=== PATIENT | female | born 1980 | race Caucasian/White ===

== ENCOUNTER 2017-01-01 16:32 | Inpatient (IN) | payer OTHER ==
[2017-01-01] MEDS ORDERED: Albuterol-Ipratrop 3 mg / 0.5 (3 ml) UD INH STA (16:38)
[2017-01-01 16:58] LABS: BASO # 0.1 K/uL (0.0-0.2); BASO % 0.9 % (0.0-2.0); EOS # 0.1 K/uL (0.0-0.7); EOS % 0.9 % (0.0-4.0); HEMATOCRIT 41.7 % (34.0-47.0); LYMPH # 3.7 K/uL (1.0-4.3); LYMPH % 31.3 % (20.0-40.0); MEAN CELL VOLUME 88.4 fl (81.0-99.0); MEAN CORPUSCULAR HEMOGLOBIN 28.6 pg (27.0-31.0); MEAN CORPUSCULAR HGB CONC 32.3 g/dL (33.0-37.0); MEAN PLATELET VOLUME 8.8 fl (7.2-11.7); MONO # 0.8 K/uL (0.0-0.8); MONO % 7.2 % (0.0-10.0); NEUT # 7.1 K/uL (1.8-7.0); NEUT % 59.7 % (50.0-75.0); RED CELL DISTRIBUTION WIDTH 13.3 % (11.5-14.5); WHITE BLOOD COUNT 11.8 K/uL (4.8-10.8)
[2017-01-01] MEDS ORDERED: Iohexol 300 100 ML IJ ONE (17:01)
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
[2017-01-01] MEDS ORDERED: Sodium Chloride 0.9% 50 ML IV ONE (17:02)
[2017-01-01 17:12] LABS: PARTIAL THROMBOPLASTIN TIME 27.5 Seconds (25.6-37.1)
[2017-01-01 17:19] LABS: ALB/GLOB RATIO 1.4 (1.0-2.1); ALCOHOL SERUM < 10 mg/dl (0-10); ALKALINE PHOSPHATASE 82 U/L (38-126); ALT/SGPT 47 U/L (9-52); AST/SGOT 46 U/L (14-36); BILIRUBIN,TOTAL 0.5 mg/dl (0.2-1.3); BLOOD UREA NITROGEN 6 mg/dl (7-17); CARBON DIOXIDE 13 mmol/L (22-30); CHLORIDE 111 mmol/L (98-107); GFR AFRICAN-AMERICAN > 60; GLUCOSE,RANDOM 255 mg/dL (65-105); LIPASE 86 U/L (23-300); POTASSIUM 3.7 MMOL/L (3.6-5.0); SODIUM 146 mmol/l (132-148); TOTAL PROTEIN 8.1 G/DL (6.3-8.2)
[2017-01-01] MEDS ORDERED: Etomidate 20 mg/10ml Inj IV ONE (17:19)
[2017-01-01] MEDS ORDERED: Succinylcholine 200 mg/10 ml Inj IV ONE (17:19)
[2017-01-01] MEDS ORDERED: Propofol 10 mg/ml Inj (20 ML) IV ONE (17:19)
[2017-01-01] MEDS ORDERED: Propofol 10 mg/ml 1,000 MG/100 ML VIAL IV SCH ×2 (17:30→21:39)
[2017-01-01 17:36] LABS: VENOUS BLOOD GAS BASE EXCESS -13.2 mmol/L (0.0-2.0); VENOUS BLOOD GAS PCO2 60 mmHg (40-60); VENOUS BLOOD PH 7.07 (7.32-7.43)
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
[2017-01-01] MEDS ORDERED: Piperacillin/Tazobact 3.375 GM in Sodium Chloride 0.9% 100 ML IVPB STA (17:42)
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
[2017-01-01 17:55] LABS: ABG ALLEN TEST YES; ABG MECHANICAL RATE 14; ARTERIAL BLOOD GAS HCO3 16.2 mmol/L (21-28); ARTERIAL BLOOD GAS MODE PRVC AC; ARTERIAL BLOOD GAS O2 CAPACITY 16.1 mL/dL (16-24); ARTERIAL BLOOD GAS PH 7.21 (7.35-7.45); ARTERIAL BLOOD GAS PO2 250 mm/Hg (80-100); ARTERIAL BLOOD HGB O2 SAT 97.1 % (95.0-98.0); ATERIAL BLOOD GAS PEEP 5; CARBOXYHEMOGLOBIN 0.4 % (0.5-1.5); HHB 0.4 % (0.0-5.0); METHEMOGLOBIN 2.1 % (0.0-3.0)
[2017-01-01] MEDS ORDERED: Piperacillin/Tazobact 3.375 gm Inj IVPB ONE (17:59)
[2017-01-01] MEDS ORDERED: Vancomycin 1 g Inj ONE (17:59)
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
[2017-01-01] MEDS ORDERED: Propofol 10 mg/ml 2,000 MG/200 ML VIAL ONE (18:44)
[2017-01-01] MEDS ORDERED: DOPamine 400mg/250ml D5W 400 MG/250 ML BAG IV ONE (18:55)
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
[2017-01-01] MEDS ORDERED: Dextrose 5%/0.9% NS 1,000 ML IV ONE (19:40)
[2017-01-01 20:13] VITALS: BMI 22.8
[2017-01-01 21:43] LABS: VENOUS BLOOD GAS BASE EXCESS -10.8 mmol/L (0.0-2.0); VENOUS BLOOD GAS PCO2 45 mmHg (40-60); VENOUS BLOOD PH 7.19 (7.32-7.43)
[2017-01-01 22:00] LABS: ABG ALLEN TEST YES; ARTERIAL BLOOD GAS HCO3 18.2 mmol/L (21-28); ARTERIAL BLOOD GAS O2 CAPACITY 15.9 mL/dL (16-24); ARTERIAL BLOOD GAS O2 CONTENT 15.7 ML/dL (15-23); ARTERIAL BLOOD GAS PH 7.31 (7.35-7.45); ARTERIAL BLOOD GAS PO2 382 mm/Hg (80-100); ARTERIAL BLOOD HGB O2 SAT 97.4 % (95.0-98.0); CARBOXYHEMOGLOBIN 0 % (0.5-1.5); METHEMOGLOBIN 1.5 % (0.0-3.0)
[2017-01-01] MEDS: Piperacillin/Tazobact 3.375 GM in Sodium Chloride 0.9% 100 ML IVPB SCH (22:08)
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
[2017-01-02] MEDS ORDERED: Propofol 10 mg/ml 1,000 MG/100 ML VIAL IV SCH (04:37)
[2017-01-02] MEDS: Piperacillin/Tazobact 3.375 GM in Sodium Chloride 0.9% 100 ML IVPB SCH ×4 (04:39→21:16)
[2017-01-02 05:39] LABS: ABG ALLEN TEST YES; ABG MECHANICAL RATE 14; ARTERIAL BLOOD GAS MODE A/C; ARTERIAL BLOOD GAS O2 CAPACITY 16.1 mL/dL (16-24); ARTERIAL BLOOD GAS PO2 201 mm/Hg (80-100); ARTERIAL BLOOD HGB O2 SAT 97.3 % (95.0-98.0); ATERIAL BLOOD GAS PEEP 5; CARBOXYHEMOGLOBIN 0.5 % (0.5-1.5); HHB 0.9 % (0.0-5.0); METHEMOGLOBIN 1.2 % (0.0-3.0)
[2017-01-02 05:46] LABS: ALKALINE PHOSPHATASE 50 U/L (38-126); ALT/SGPT 43 U/L (9-52); AST/SGOT 66 U/L (14-36); BILIRUBIN,TOTAL 0.7 mg/dl (0.2-1.3); BLOOD UREA NITROGEN 4 mg/dl (7-17); CALCIUM 7.5 mg/dL (8.4-10.2); CARBON DIOXIDE 18 mmol/L (22-30); CHLORIDE 117 mmol/L (98-107); GFR AFRICAN-AMERICAN > 60; GLUCOSE,RANDOM 100 mg/dL (65-105); PHOSPHOROUS 2.5 mg/dl (2.5-4.5); POTASSIUM 3.5 MMOL/L (3.6-5.0); SODIUM 143 mmol/l (132-148); TOTAL PROTEIN 5.5 G/DL (6.3-8.2)
[2017-01-02] MEDS ORDERED: Pneumococcal 23-Valent Vaccine IM ONE (06:00)
[2017-01-02 06:09] LABS: ALB/GLOB RATIO 1.2 (1.0-2.1)
[2017-01-02 06:15] LABS: THYROID STIMULATING HORMONE 1.91 mIU/ML (0.46-4.68)
[2017-01-02] MEDS: Albuterol 0.083% Inhal Sol (2.5 mg/3 mL) UD INH SCH ×4 (07:45→19:12)
[2017-01-02 08:04] LABS: RBC URINE 5 /hpf (0-3); URINE BILIRUBIN NEGATIVE (NEGATIVE); URINE BLOOD MODERATE (NEGATIVE); URINE COLOR YELLOW (YELLOW); URINE GLUCOSE (UA) NEG (Normal); URINE KETONE NEGATIVE (NEGATIVE); URINE LEUKOCYTE ESTERASE NEG Leu/uL (Negative); URINE PROTEIN NEGATIVE (NEGATIVE); URINE UROBILINOGEN 0.2-1.0 mg/dL (0.2-1.0); WBC URINE 3 /hpf (0-5)
[2017-01-02 09:19] LABS: BASO % 0.1 % (0.0-2.0); HEMATOCRIT 34.7 % (34.0-47.0); LYMPH # 0.5 K/uL (1.0-4.3); LYMPH % 3.2 % (20.0-40.0); MEAN CELL VOLUME 87.3 fl (81.0-99.0); MEAN CORPUSCULAR HEMOGLOBIN 28.6 pg (27.0-31.0); MEAN CORPUSCULAR HGB CONC 32.8 g/dL (33.0-37.0); MEAN PLATELET VOLUME 8.6 fl (7.2-11.7); MONO # 0.7 K/uL (0.0-0.8); MONO % 4.3 % (0.0-10.0); NEUT # 15.4 K/uL (1.8-7.0); NEUT % 92.4 % (50.0-75.0); NRBC % 0.1 % (0.0-0.0); RED CELL DISTRIBUTION WIDTH 13.6 % (11.5-14.5); WHITE BLOOD COUNT 16.7 K/uL (4.8-10.8)
[2017-01-02 09:36] LABS: PARTIAL THROMBOPLASTIN TIME 33.6 Seconds (25.6-37.1)
[2017-01-02 09:45] LABS: PLATELET COUNT 170 K/uL (130-400)
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
--- NOTE | 2017-01-02 10:10 | CARD ---
APPROVED REPORT EKG Measurement Heart [id number] <Conclusion> Normal sinus rhythm Normal ECG
--- NOTE | 2017-01-02 10:19 | CP.CCUPN ---
<Dayan Osullivan - Last Filed: 01/02/17 14:10> CCU Subjective - Physician Review Subjective (Free Text): 01/02/17 10:56 Pt seen at beside on Vent and propofol. She is easily arousable. Pt responds to her name and is able to follow commands and shakes her head (yes/no) to communicate. When asked if she is in pain, patient shakes her head no. She is able to write down messages to communicate. - Pt's was at bedside. He states the patient went out for shopping and never returned home. Denies any significant PMH in patient or any history of depression. He does admit to having some marital issues and financial problems, but denies any suicidal attempts of the patient. Vent settings: RR: 14 TV: 400 PEEP:5 FIO2:50 Saturating at 100% 01/02/17 11:15 Critical Care Time Spent (in minutes): 30 CCU Objective - Vital Signs / Intake & Output Vital Signs (Last 4 hours): Vital Signs Temp Pulse Resp BP Pulse Ox 01/02/17 10:00 93 H 17 111/66 100 01/02/17 08:17 100.0 F H 95 H 20 104/70 100 01/02/17 07:00 97 H 21 104/67 100 Intake and Output (Last 8hrs): Intake & Output 01/01/17 01/02/17 01/02/17 22:59 06:59 14:59 Intake Total 200 800 Output Total 1900 Balance 200 -1100 Weight 117 lb Intake: IV 100 700 Intake, Piggyback 100 100 Output: Urine 1900 Urethral (Nascimento) 1900 - Physical Exam Head: Positive for: Normocephalic, Other (Abrasion on upper right foread.) Pupils: Positive for: PERRL Extroacular Muscles: Positive for: EOMI Conjunctiva: Positive for: Normal Mouth: Positive for: Moist Mucous Membranes Nose (External): Positive for: Atraumatic Respiratory/Chest: Positive for: Rales (S/L rales heard b/l), Other (on mechanical ventilation) Cardiovascular: Positive for: Regular Rate and Rhythm, Normal S1, S2 Abdomen: Positive for: Normal Bowel Sounds. Negative for: Tenderness, Rebound, Guarding Upper Extremity: Positive for: Normal Inspection, NORMAL PULSES, Capillary Refill < 2s. Negative for: Edema Lower Extremity: Positive for: Normal Inspection, NORMAL PULSES, Capillary Refill < 2 s. Negative for: Edema, CALF TENDERNESS Neurological: Positive for: CN II-XII Intact, Other (patinet able to move all four extremities and sensation is intact, unable to do a full neuro exam) Skin: Positive for: Abrasion (minor small abrasions on cuboidal region of left arm, abrasion on upper right side of her forehead) Psychiatric: Positive for: Other (Sedated up able to follow comand and nods to knowing her name and that she is in the hospital) - Medications Active Medications: Active Medications Generic Name Dose Route Start Last Admin Trade Name Freq PRN Reason Stop Dose Admin Acetaminophen 650 mg 01/01/17 19:40 01/02/17 00:21 Tylenol 650 Mg Supp RI 650 mg Q6H PRN Administration Fever >100.4 F Albuterol Sulfate 2.5 mg 01/01/17 20:00 01/02/17 07:45 Albuterol 0.083% Inhal Danielle (2.5 Mg/3 Ml) Ud INH 2.5 mg RQID PAUL Administration Potassium Chloride 20 meq/ 1,010 mls @ 100 mls/hr 01/01/17 18:15 01/02/17 07: 02 Sodium Chloride IV 01/02/17 18:14 100 mls/hr .[id number] PAUL Administration Piperacillin Sod/Tazobactam 100 mls @ 100 mls/hr 01/01/17 22:00 01/02/17 09: 39 Sod 3.375 gm/ Sodium Chloride IVPB 100 mls/hr Q6 PAUL Administration Propofol 1,000 mg in 100 mls @ 9.54 mls/hr 01/02/17 04:37 01/02/17 05:50 Diprivan IV 01/02/17 17:20 5 mcg/kg/min .[id number] PAUL 1.59 mls/hr Protocol Titration 30 MCG/KG/MIN Ondansetron HCl 4 mg 01/01/17 19:40 Zofran Inj IVP Q6H PRN Nausea/Vomiting Pantoprazole Sodium 40 mg 01/02/17 09:00 01/02/17 09:38 Protonix Inj IVP 40 mg DAILY PAUL Administration - Patient Studies Lab Studies: Lab Studies 01/02/17 01/02/17 01/02/17 Range/Units 08:55 08:55 07:43 WBC 16.7 H (4.8-10.8) K/uL RBC 3.98 (3.80-5.20) Mil/uL Hgb 11.4 L D (12.0-16.0) g/dL Hct 34.7 (34.0-47.0) % MCV 87.3 (81.0-99.0) fl MCH 28.6 (27.0-31.0) pg MCHC 32.8 L (33.0-37.0) g/dL RDW 13.6 (11.5-14.5) % Plt Count 170 D (130-400) K/uL MPV 8.6 (7.2-11.7) fl Neut % (Auto) 92.4 H (50.0-75.0) % Lymph % (Auto) 3.2 L (20.0-40.0) % [place] % (Auto) 4.3 (0.0-10.0) % Eos % (Auto) 0.0 (0.0-4.0) % Baso % (Auto) 0.1 (0.0-2.0) % Neut # 15.4 H (1.8-7.0) K/uL Lymph # 0.5 L (1.0-4.3) K/uL [place] # 0.7 (0.0-0.8) K/uL Eos # 0.0 (0.0-0.7) K/uL Baso # 0.0 (0.0-0.2) K/uL PT 13.0 (9.8-13.1) Seconds INR 1.2 (0.9-1.2) APTT 33.6 D (25.6-37.1) Seconds pCO2 (35-45) mm/Hg pO2 (30-55) mm/Hg HCO3 (21-28) mmol/L ABG pH (7.35-7.45) ABG Total CO2 (22-28) mmol/L ABG O2 Saturation (95-98) % ABG O2 Content (15-23) ML/dL ABG Base Excess (-2.0-3.0) mmol/L ABG Hemoglobin (11.7-17.4) g/dL ABG Carboxyhemoglobin (0.5-1.5) % POC ABG HHb (Measured) (0.0-5.0) % ABG Methemoglobin (0.0-3.0) % ABG O2 Capacity (16-24) mL/dL Gideon Test VBG pH (7.32-7.43) VBG pCO2 (40-60) mmHg VBG HCO3 mmol/L VBG Total CO2 (22-28) mmol/L VBG O2 Sat (Calc) (40-65) % VBG Base Excess (0.0-2.0) mmol/L VBG Potassium (3.6-5.2) mmol/L A-a O2 Difference mm/Hg Hgb O2 Saturation (95.0-98.0) % Sodium (132-148) mmol/L Chloride (98-107) mmol/L Glucose (65-105) mg/dL Lactate (0.7-2.1) mmol/L Vent Mode Mechanical Rate FiO2 % Tidal Volume PEEP Crit Value Called To Crit Value Called By Crit Value Read Back Blood Gas Notified Time Potassium (3.6-5.0) MMOL/L Carbon Dioxide (22-30) mmol/L Anion Gap (10-20) BUN (7-17) mg/dl Creatinine (0.7-1.2) mg/dL Est GFR ( Amer) Est GFR (Non-Af Amer) POC Glucose (mg/dL) (65-110) mg/dL Random Glucose (65-105) mg/dL Lactic Acid (0.7-2.1) MMOL/L Calcium (8.4-10.2) mg/dL Phosphorus (2.5-4.5) mg/dl Magnesium (1.6-2.3) MG/DL Total Bilirubin (0.2-1.3) mg/dl AST (14-36) U/L ALT (9-52) U/L Alkaline Phosphatase (38-126) U/L Total Creatine Kinase (30-135) U/L Troponin I (0.00-0.120) ng/mL Total Protein (6.3-8.2) G/DL Albumin (3.5-5.0) g/dL Globulin (2.2-3.9) gm/dL Albumin/Globulin Ratio (1.0-2.1) TSH 3rd Generation (0.46-4.68) mIU/ML Venous Blood Potassium (3.6-5.2) mmol/L Urine Color Yellow (YELLOW) Urine Clarity Slighty-cloudy (Clear) Urine pH 5.0 (5.0-8.0) Ur Specific [place] 1.020 (1.003-1.030) Urine Protein Negative (NEGATIVE) mg/dL Urine Glucose (UA) Neg (Normal) mg/dL Urine Ketones Negative (NEGATIVE) mg/dL Urine Blood Moderate (NEGATIVE) Urine Nitrate Negative (NEGATIVE) Urine Bilirubin Negative (NEGATIVE) Urine Urobilinogen 0.2-1.0 (0.2-1.0) mg/dL Ur Leukocyte Esterase Neg (Negative) Damaso/uL Urine RBC (Auto) 5 H (0-3) /hpf Urine Microscopic WBC 3 (0-5) /hpf Ur Squamous Epith Cells 1 (0-5) /hpf Urine HCG, Qual (NEGATIVE) Urine Opiates Screen (NEGATIVE) Urine Methadone Screen (NEGATIVE) Ur Barbiturates Screen (NEGATIVE) Ur Phencyclidine Scrn (NEGATIVE) Ur Amphetamines Screen (NEGATIVE) U Benzodiazepines Scrn (NEGATIVE) U Oth Cocaine Metabols (NEGATIVE) U Cannabinoids Screen (NEGATIVE) 01/02/17 01/02/17 01/02/17 Range/Units 05:33 04:20 04:20 WBC (4.8-10.8) K/uL RBC (3.80-5.20) Mil/uL Hgb (12.0-16.0) g/dL Hct (34.0-47.0) % MCV (81.0-99.0) fl MCH (27.0-31.0) pg MCHC (33.0-37.0) g/dL RDW (11.5-14.5) % Plt Count (130-400) K/uL MPV (7.2-11.7) fl Neut % (Auto) (50.0-75.0) % Lymph % (Auto) (20.0-40.0) % [place] % (Auto) (0.0-10.0) % Eos % (Auto) (0.0-4.0) % Baso % (Auto) (0.0-2.0) % Neut # (1.8-7.0) K/uL Lymph # (1.0-4.3) K/uL [place] # (0.0-0.8) K/uL Eos # (0.0-0.7) K/uL Baso # (0.0-0.2) K/uL PT (9.8-13.1) Seconds INR (0.9-1.2) APTT (25.6-37.1) Seconds pCO2 28 L (35-45) mm/Hg pO2 201 H (30-55) mm/Hg HCO3 20.0 L (21-28) mmol/L ABG pH 7.40 (7.35-7.45) ABG Total CO2 18.2 L (22-28) mmol/L ABG O2 Saturation 99.1 H (95-98) % ABG O2 Content 16.0 (15-23) ML/dL ABG Base Excess -6.3 L (-2.0-3.0) mmol/L ABG Hemoglobin 11.4 L (11.7-17.4) g/dL ABG Carboxyhemoglobin 0.5 (0.5-1.5) % POC ABG HHb (Measured) 0.9 (0.0-5.0) % ABG Methemoglobin 1.2 (0.0-3.0) % ABG O2 Capacity 16.1 (16-24) mL/dL Gideon Test Yes VBG pH (7.32-7.43) VBG pCO2 (40-60) mmHg VBG HCO3 mmol/L VBG Total CO2 (22-28) mmol/L VBG O2 Sat (Calc) (40-65) % VBG Base Excess (0.0-2.0) mmol/L VBG Potassium (3.6-5.2) mmol/L A-a O2 Difference 121.0 mm/Hg Hgb O2 Saturation 97.3 (95.0-98.0) % Sodium (132-148) mmol/L Chloride (98-107) mmol/L Glucose (65-105) mg/dL Lactate (0.7-2.1) mmol/L Vent Mode A/c Mechanical Rate 14 FiO2 50.0 % Tidal Volume 400 PEEP 5 Crit Value Called To Crit Value Called By Crit Value Read Back Blood Gas Notified Time Potassium (3.6-5.0) MMOL/L Carbon Dioxide (22-30) mmol/L Anion Gap (10-20) BUN (7-17) mg/dl Creatinine (0.7-1.2) mg/dL Est GFR ( Amer) Est GFR (Non-Af Amer) POC Glucose (mg/dL) 110 (65-110) mg/dL Random Glucose (65-105) mg/dL Lactic Acid 3.3 H (0.7-2.1) MMOL/L Calcium (8.4-10.2) mg/dL Phosphorus (2.5-4.5) mg/dl Magnesium (1.6-2.3) MG/DL Total Bilirubin (0.2-1.3) mg/dl AST (14-36) U/L ALT (9-52) U/L Alkaline Phosphatase (38-126) U/L Total Creatine Kinase (30-135) U/L Troponin I (0.00-0.120) ng/mL Total Protein (6.3-8.2) G/DL Albumin (3.5-5.0) g/dL Globulin (2.2-3.9) gm/dL Albumin/Globulin Ratio (1.0-2.1) TSH 3rd Generation (0.46-4.68) mIU/ML Venous Blood Potassium (3.6-5.2) mmol/L Urine Color (YELLOW) Urine Clarity (Clear) Urine pH (5.0-8.0) Ur Specific [place] (1.003-1.030) Urine Protein (NEGATIVE) mg/dL Urine Glucose (UA) (Normal) mg/dL Urine Ketones (NEGATIVE) mg/dL Urine Blood (NEGATIVE) Urine Nitrate (NEGATIVE) Urine Bilirubin (NEGATIVE) Urine Urobilinogen (0.2-1.0) mg/dL Ur Leukocyte Esterase (Negative) Damaso/uL Urine RBC (Auto) (0-3) /hpf Urine Microscopic WBC (0-5) /hpf Ur Squamous Epith Cells (0-5) /hpf Urine HCG, Qual (NEGATIVE) Urine Opiates Screen (NEGATIVE) Urine Methadone Screen (NEGATIVE) Ur Barbiturates Screen (NEGATIVE) Ur Phencyclidine Scrn (NEGATIVE) Ur Amphetamines Screen (NEGATIVE) U Benzodiazepines Scrn (NEGATIVE) U Oth Cocaine Metabols (NEGATIVE) U Cannabinoids Screen (NEGATIVE) 01/02/17 01/02/17 01/01/17 Range/Units 04:20 04:20 23:59 WBC (4.8-10.8) K/uL RBC (3.80-5.20) Mil/uL Hgb (12.0-16.0) g/dL Hct (34.0-47.0) % MCV (81.0-99.0) fl MCH (27.0-31.0) pg MCHC (33.0-37.0) g/dL RDW (11.5-14.5) % Plt Count (130-400) K/uL MPV (7.2-11.7) fl Neut % (Auto) (50.0-75.0) % Lymph % (Auto) (20.0-40.0) % [place] % (Auto) (0.0-10.0) % Eos % (Auto) (0.0-4.0) % Baso % (Auto) (0.0-2.0) % Neut # (1.8-7.0) K/uL Lymph # (1.0-4.3) K/uL [place] # (0.0-0.8) K/uL Eos # (0.0-0.7) K/uL Baso # (0.0-0.2) K/uL PT 12.3 (9.8-13.1) Seconds INR 1.1 (0.9-1.2) APTT (25.6-37.1) Seconds pCO2 (35-45) mm/Hg pO2 (30-55) mm/Hg HCO3 (21-28) mmol/L ABG pH (7.35-7.45) ABG Total CO2 (22-28) mmol/L ABG O2 Saturation (95-98) % ABG O2 Content (15-23) ML/dL ABG Base Excess (-2.0-3.0) mmol/L ABG Hemoglobin (11.7-17.4) g/dL ABG Carboxyhemoglobin (0.5-1.5) % POC ABG HHb (Measured) (0.0-5.0) % ABG Methemoglobin (0.0-3.0) % ABG O2 Capacity (16-24) mL/dL Gideon Test VBG pH (7.32-7.43) VBG pCO2 (40-60) mmHg VBG HCO3 mmol/L VBG Total CO2 (22-28) mmol/L VBG O2 Sat (Calc) (40-65) % VBG Base Excess (0.0-2.0) mmol/L VBG Potassium (3.6-5.2) mmol/L A-a O2 Difference mm/Hg Hgb O2 Saturation (95.0-98.0) % Sodium 143 (132-148) mmol/L Chloride 117 H (98-107) mmol/L Glucose (65-105) mg/dL Lactate (0.7-2.1) mmol/L Vent Mode Mechanical Rate FiO2 % Tidal Volume PEEP Crit Value Called To Crit Value Called By Crit Value Read Back Blood Gas Notified Time Potassium 3.5 L (3.6-5.0) MMOL/L Carbon Dioxide 18 L (22-30) mmol/L Anion Gap 12 (10-20) BUN 4 L (7-17) mg/dl Creatinine 0.7 (0.7-1.2) mg/dL Est GFR ( Amer) > 60 Est GFR (Non-Af Amer) > 60 POC Glucose (mg/dL) (65-110) mg/dL Random Glucose 100 (65-105) mg/dL Lactic Acid (0.7-2.1) MMOL/L Calcium 7.5 L (8.4-10.2) mg/dL Phosphorus 2.5 (2.5-4.5) mg/dl Magnesium 2.0 (1.6-2.3) MG/DL Total Bilirubin 0.7 (0.2-1.3) mg/dl AST 66 H D (14-36) U/L ALT 43 (9-52) U/L Alkaline Phosphatase 50 (38-126) U/L Total Creatine Kinase (30-135) U/L Troponin I 0.3440 H* 0.3280 H* (0.00-0.120) ng/mL Total Protein 5.5 L (6.3-8.2) G/DL Albumin 3.0 L D (3.5-5.0) g/dL Globulin 2.6 (2.2-3.9) gm/dL Albumin/Globulin Ratio 1.2 (1.0-2.1) TSH 3rd Generation 1.91 (0.46-4.68) mIU/ML Venous Blood Potassium (3.6-5.2) mmol/L Urine Color (YELLOW) Urine Clarity (Clear) Urine pH (5.0-8.0) Ur Specific [place] (1.003-1.030) Urine Protein (NEGATIVE) mg/dL Urine Glucose (UA) (Normal) mg/dL Urine Ketones (NEGATIVE) mg/dL Urine Blood (NEGATIVE) Urine Nitrate (NEGATIVE) Urine Bilirubin (NEGATIVE) Urine Urobilinogen (0.2-1.0) mg/dL Ur Leukocyte Esterase (Negative) Damaso/uL Urine RBC (Auto) (0-3) /hpf Urine Microscopic WBC (0-5) /hpf Ur Squamous Epith Cells (0-5) /hpf Urine HCG, Qual (NEGATIVE) Urine Opiates Screen (NEGATIVE) Urine Methadone Screen (NEGATIVE) Ur Barbiturates Screen (NEGATIVE) Ur Phencyclidine Scrn (NEGATIVE) Ur Amphetamines Screen (NEGATIVE) U Benzodiazepines Scrn (NEGATIVE) U Oth Cocaine Metabols (NEGATIVE) U Cannabinoids Screen (NEGATIVE) 01/01/17 01/01/17 01/01/17 Range/Units 22:28 21:48 21:45 WBC (4.8-10.8) K/uL RBC (3.80-5.20) Mil/uL Hgb (12.0-16.0) g/dL Hct (34.0-47.0) % MCV (81.0-99.0) fl MCH (27.0-31.0) pg MCHC (33.0-37.0) g/dL RDW (11.5-14.5) % Plt Count (130-400) K/uL MPV (7.2-11.7) fl Neut % (Auto) (50.0-75.0) % Lymph % (Auto) (20.0-40.0) % [place] % (Auto) (0.0-10.0) % Eos % (Auto) (0.0-4.0) % Baso % (Auto) (0.0-2.0) % Neut # (1.8-7.0) K/uL Lymph # (1.0-4.3) K/uL [place] # (0.0-0.8) K/uL Eos # (0.0-0.7) K/uL Baso # (0.0-0.2) K/uL PT (9.8-13.1) Seconds INR (0.9-1.2) APTT (25.6-37.1) Seconds pCO2 33 L (35-45) mm/Hg pO2 382 H (30-55) mm/Hg HCO3 18.2 L (21-28) mmol/L ABG pH 7.31 L (7.35-7.45) ABG Total CO2 17.6 L (22-28) mmol/L ABG O2 Saturation 99.0 H (95-98) % ABG O2 Content 15.7 (15-23) ML/dL ABG Base Excess -8.7 L (-2.0-3.0) mmol/L ABG Hemoglobin 10.7 L (11.7-17.4) g/dL ABG Carboxyhemoglobin 0 L (0.5-1.5) % POC ABG HHb (Measured) 1.0 (0.0-5.0) % ABG Methemoglobin 1.5 (0.0-3.0) % ABG O2 Capacity 15.9 L (16-24) mL/dL Gideon Test Yes VBG pH (7.32-7.43) VBG pCO2 (40-60) mmHg VBG HCO3 mmol/L VBG Total CO2 (22-28) mmol/L VBG O2 Sat (Calc) (40-65) % VBG Base Excess (0.0-2.0) mmol/L VBG Potassium (3.6-5.2) mmol/L A-a O2 Difference 290.0 mm/Hg Hgb O2 Saturation 97.4 (95.0-98.0) % Sodium (132-148) mmol/L Chloride (98-107) mmol/L Glucose (65-105) mg/dL Lactate (0.7-2.1) mmol/L Vent Mode Mechanical Rate FiO2 100.0 % Tidal Volume PEEP Crit Value Called To Crit Value Called By Crit Value Read Back Blood Gas Notified Time Potassium (3.6-5.0) MMOL/L Carbon Dioxide (22-30) mmol/L Anion Gap (10-20) BUN (7-17) mg/dl Creatinine (0.7-1.2) mg/dL Est GFR ( Amer) Est GFR (Non-Af Amer) POC Glucose (mg/dL) 105 (65-110) mg/dL Random Glucose (65-105) mg/dL Lactic Acid (0.7-2.1) MMOL/L Calcium (8.4-10.2) mg/dL Phosphorus (2.5-4.5) mg/dl Magnesium (1.6-2.3) MG/DL Total Bilirubin (0.2-1.3) mg/dl AST (14-36) U/L ALT (9-52) U/L Alkaline Phosphatase (38-126) U/L Total Creatine Kinase 345 H (30-135) U/L Troponin I (0.00-0.120) ng/mL Total Protein (6.3-8.2) G/DL Albumin (3.5-5.0) g/dL Globulin (2.2-3.9) gm/dL Albumin/Globulin Ratio (1.0-2.1) TSH 3rd Generation (0.46-4.68) mIU/ML Venous Blood Potassium (3.6-5.2) mmol/L Urine Color (YELLOW) Urine Clarity (Clear) Urine pH (5.0-8.0) Ur Specific [place] (1.003-1.030) Urine Protein (NEGATIVE) mg/dL Urine Glucose (UA) (Normal) mg/dL Urine Ketones (NEGATIVE) mg/dL Urine Blood (NEGATIVE) Urine Nitrate (NEGATIVE) Urine Bilirubin (NEGATIVE) Urine Urobilinogen (0.2-1.0) mg/dL Ur Leukocyte Esterase (Negative) Damaso/uL Urine RBC (Auto) (0-3) /hpf Urine Microscopic WBC (0-5) /hpf Ur Squamous Epith Cells (0-5) /hpf Urine HCG, Qual (NEGATIVE) Urine Opiates Screen (NEGATIVE) Urine Methadone Screen (NEGATIVE) Ur Barbiturates Screen (NEGATIVE) Ur Phencyclidine Scrn (NEGATIVE) Ur Amphetamines Screen (NEGATIVE) U Benzodiazepines Scrn (NEGATIVE) U Oth Cocaine Metabols (NEGATIVE) U Cannabinoids Screen (NEGATIVE) 01/01/17 01/01/17 01/01/17 Range/Units 21:35 20:44 19:38 WBC (4.8-10.8) K/uL RBC (3.80-5.20) Mil/uL Hgb (12.0-16.0) g/dL Hct (34.0-47.0) % MCV (81.0-99.0) fl MCH (27.0-31.0) pg MCHC (33.0-37.0) g/dL RDW (11.5-14.5) % Plt Count (130-400) K/uL MPV (7.2-11.7) fl Neut % (Auto) (50.0-75.0) % Lymph % (Auto) (20.0-40.0) % [place] % (Auto) (0.0-10.0) % Eos % (Auto) (0.0-4.0) % Baso % (Auto) (0.0-2.0) % Neut # (1.8-7.0) K/uL Lymph # (1.0-4.3) K/uL [place] # (0.0-0.8) K/uL Eos # (0.0-0.7) K/uL Baso # (0.0-0.2) K/uL PT (9.8-13.1) Seconds INR (0.9-1.2) APTT (25.6-37.1) Seconds pCO2 (35-45) mm/Hg pO2 53 (30-55) mm/Hg HCO3 (21-28) mmol/L ABG pH (7.35-7.45) ABG Total CO2 (22-28) mmol/L ABG O2 Saturation (95-98) % ABG O2 Content (15-23) ML/dL ABG Base Excess (-2.0-3.0) mmol/L ABG Hemoglobin (11.7-17.4) g/dL ABG Carboxyhemoglobin (0.5-1.5) % POC ABG HHb (Measured) (0.0-5.0) % ABG Methemoglobin (0.0-3.0) % ABG O2 Capacity (16-24) mL/dL Gideon Test VBG pH 7.19 L* (7.32-7.43) VBG pCO2 45 (40-60) mmHg VBG HCO3 16.0 mmol/L VBG Total CO2 18.6 L (22-28) mmol/L VBG O2 Sat (Calc) 89.0 H (40-65) % VBG Base Excess -10.8 L (0.0-2.0) mmol/L VBG Potassium 3.5 L (3.6-5.2) mmol/L A-a O2 Difference mm/Hg Hgb O2 Saturation (95.0-98.0) % Sodium 145.0 (132-148) mmol/L Chloride 119.0 H (98-107) mmol/L Glucose 105 (65-105) mg/dL Lactate 3.9 H (0.7-2.1) mmol/L Vent Mode Mechanical Rate FiO2 100.0 % Tidal Volume PEEP Crit Value Called To Ana connor Crit Value Called By Ms Crit Value Read Back Y Blood Gas Notified Time 2139 Potassium (3.6-5.0) MMOL/L Carbon Dioxide (22-30) mmol/L Anion Gap (10-20) BUN (7-17) mg/dl Creatinine (0.7-1.2) mg/dL Est GFR ( Amer) Est GFR (Non-Af Amer) POC Glucose (mg/dL) (65-110) mg/dL Random Glucose (65-105) mg/dL Lactic Acid (0.7-2.1) MMOL/L Calcium (8.4-10.2) mg/dL Phosphorus (2.5-4.5) mg/dl Magnesium (1.6-2.3) MG/DL Total Bilirubin (0.2-1.3) mg/dl AST (14-36) U/L ALT (9-52) U/L Alkaline Phosphatase (38-126) U/L Total Creatine Kinase (30-135) U/L Troponin I 0.1960 H* (0.00-0.120) ng/mL Total Protein (6.3-8.2) G/DL Albumin (3.5-5.0) g/dL Globulin (2.2-3.9) gm/dL Albumin/Globulin Ratio (1.0-2.1) TSH 3rd Generation (0.46-4.68) mIU/ML Venous Blood Potassium 3.5 L (3.6-5.2) mmol/L Urine Color (YELLOW) Urine Clarity (Clear) Urine pH (5.0-8.0) Ur Specific [place] (1.003-1.030) Urine Protein (NEGATIVE) mg/dL Urine Glucose (UA) (Normal) mg/dL Urine Ketones (NEGATIVE) mg/dL Urine Blood (NEGATIVE) Urine Nitrate (NEGATIVE) Urine Bilirubin (NEGATIVE) Urine Urobilinogen (0.2-1.0) mg/dL Ur Leukocyte Esterase (Negative) Damaso/uL Urine RBC (Auto) (0-3) /hpf Urine Microscopic WBC (0-5) /hpf Ur Squamous Epith Cells (0-5) /hpf Urine HCG, Qual Negative (NEGATIVE) Urine Opiates Screen (NEGATIVE) Urine Methadone Screen (NEGATIVE) Ur Barbiturates Screen (NEGATIVE) Ur Phencyclidine Scrn (NEGATIVE) Ur Amphetamines Screen (NEGATIVE) U Benzodiazepines Scrn (NEGATIVE) U Oth Cocaine Metabols (NEGATIVE) U Cannabinoids Screen (NEGATIVE) 01/01/17 01/01/17 01/01/17 Range/Units 19:38 17:49 17:28 WBC (4.8-10.8) K/uL RBC (3.80-5.20) Mil/uL Hgb (12.0-16.0) g/dL Hct (34.0-47.0) % MCV (81.0-99.0) fl MCH (27.0-31.0) pg MCHC (33.0-37.0) g/dL RDW (11.5-14.5) % Plt Count (130-400) K/uL MPV (7.2-11.7) fl Neut % (Auto) (50.0-75.0) % Lymph % (Auto) (20.0-40.0) % [place] % (Auto) (0.0-10.0) % Eos % (Auto) (0.0-4.0) % Baso % (Auto) (0.0-2.0) % Neut # (1.8-7.0) K/uL Lymph # (1.0-4.3) K/uL [place] # (0.0-0.8) K/uL Eos # (0.0-0.7) K/uL Baso # (0.0-0.2) K/uL PT (9.8-13.1) Seconds INR (0.9-1.2) APTT (25.6-37.1) Seconds pCO2 40 (35-45) mm/Hg pO2 250 H 44 (30-55) mm/Hg HCO3 16.2 L (21-28) mmol/L ABG pH 7.21 L (7.35-7.45) ABG Total CO2 17.2 L (22-28) mmol/L ABG O2 Saturation 99.6 H (95-98) % ABG O2 Content 16.0 (15-23) ML/dL ABG Base Excess -11.2 L (-2.0-3.0) mmol/L ABG Hemoglobin 11.3 L (11.7-17.4) g/dL ABG Carboxyhemoglobin 0.4 L (0.5-1.5) % POC ABG HHb (Measured) 0.4 (0.0-5.0) % ABG Methemoglobin 2.1 (0.0-3.0) % ABG O2 Capacity 16.1 (16-24) mL/dL Gideon Test Yes VBG pH 7.07 L* (7.32-7.43) VBG pCO2 60 (40-60) mmHg VBG HCO3 13.6 mmol/L VBG Total CO2 19.2 L (22-28) mmol/L VBG O2 Sat (Calc) 71.3 H (40-65) % VBG Base Excess -13.2 L (0.0-2.0) mmol/L VBG Potassium 4.8 (3.6-5.2) mmol/L A-a O2 Difference 413.0 mm/Hg Hgb O2 Saturation 97.1 (95.0-98.0) % Sodium 144.0 (132-148) mmol/L Chloride 110.0 H (98-107) mmol/L Glucose 240 H (65-105) mg/dL Lactate 7.8 H* (0.7-2.1) mmol/L Vent Mode Prvc ac Mechanical Rate 14 FiO2 100.0 21.0 % Tidal Volume 400 PEEP 5 Crit Value Called To Ana garcia Crit Value Called By 23 Crit Value Read Back Y Blood Gas Notified Time 1730 Potassium (3.6-5.0) MMOL/L Carbon Dioxide (22-30) mmol/L Anion Gap (10-20) BUN (7-17) mg/dl Creatinine (0.7-1.2) mg/dL Est GFR ( Amer) Est GFR (Non-Af Amer) POC Glucose (mg/dL) (65-110) mg/dL Random Glucose (65-105) mg/dL Lactic Acid (0.7-2.1) MMOL/L Calcium (8.4-10.2) mg/dL Phosphorus (2.5-4.5) mg/dl Magnesium (1.6-2.3) MG/DL Total Bilirubin (0.2-1.3) mg/dl AST (14-36) U/L ALT (9-52) U/L Alkaline Phosphatase (38-126) U/L Total Creatine Kinase (30-135) U/L Troponin I (0.00-0.120) ng/mL Total Protein (6.3-8.2) G/DL Albumin (3.5-5.0) g/dL Globulin (2.2-3.9) gm/dL Albumin/Globulin Ratio (1.0-2.1) TSH 3rd Generation (0.46-4.68) mIU/ML Venous Blood Potassium 4.8 (3.6-5.2) mmol/L Urine Color (YELLOW) Urine Clarity (Clear) Urine pH (5.0-8.0) Ur Specific [place] (1.003-1.030) Urine Protein (NEGATIVE) mg/dL Urine Glucose (UA) (Normal) mg/dL Urine Ketones (NEGATIVE) mg/dL Urine Blood (NEGATIVE) Urine Nitrate (NEGATIVE) Urine Bilirubin (NEGATIVE) Urine Urobilinogen (0.2-1.0) mg/dL Ur Leukocyte Esterase (Negative) [place]/uL Urine RBC (Auto) (0-3) /hpf Urine Microscopic WBC (0-5) /hpf Ur Squamous Epith Cells (0-5) /hpf Urine HCG, Qual (NEGATIVE) Urine Opiates Screen Negative (NEGATIVE) Urine Methadone Screen Negative (NEGATIVE) Ur Barbiturates Screen Negative (NEGATIVE) Ur Phencyclidine Scrn Negative (NEGATIVE) Ur Amphetamines Screen Negative (NEGATIVE) U Benzodiazepines Scrn Negative (NEGATIVE) U Oth Cocaine Metabols Negative (NEGATIVE) U Cannabinoids Screen Negative (NEGATIVE) Laboratory Results - last 24 hr 01/01/17 01/01/17 01/01/17 17:28 17:49 19:38 WBC RBC Hgb Hct MCV MCH MCHC RDW Plt Count MPV Neut % (Auto) Lymph % (Auto) [place] % (Auto) Eos % (Auto) Baso % (Auto) Neut # Lymph # [place] # Eos # Baso # PT INR APTT pCO2 40 pO2 44 250 H HCO3 16.2 L ABG pH 7.21 L ABG Total CO2 17.2 L ABG O2 Saturation 99.6 H ABG O2 Content 16.0 ABG Base Excess -11.2 L ABG Hemoglobin 11.3 L ABG Carboxyhemoglobin 0.4 L POC ABG HHb (Measured) 0.4 ABG Methemoglobin 2.1 ABG O2 Capacity 16.1 Gideon Test Yes VBG pH 7.07 L* VBG pCO2 60 VBG HCO3 13.6 VBG Total CO2 19.2 L VBG O2 Sat (Calc) 71.3 H VBG Base Excess -13.2 L VBG Potassium 4.8 A-a O2 Difference 413.0 Hgb O2 Saturation 97.1 Sodium 144.0 Chloride 110.0 H Glucose 240 H Lactate 7.8 H* Vent Mode Prvc ac Mechanical Rate 14 FiO2 21.0 100.0 Tidal Volume 400 PEEP 5 Crit Value Called To Ana garcia Crit Value Called By 23 Crit Value Read Back Y Blood Gas Notified Time 1730 Potassium Carbon Dioxide Anion Gap BUN Creatinine Est GFR ( Amer) Est GFR (Non-Af Amer) POC Glucose (mg/dL) Random Glucose Lactic Acid Calcium Phosphorus Magnesium Total Bilirubin AST ALT Alkaline Phosphatase Total Creatine Kinase Troponin I Total Protein Albumin Globulin Albumin/Globulin Ratio TSH 3rd Generation Venous Blood Potassium 4.8 Urine Color Urine Clarity Urine pH Ur Specific [place] Urine Protein Urine Glucose (UA) Urine Ketones Urine Blood Urine Nitrate Urine Bilirubin Urine Urobilinogen Ur Leukocyte Esterase Urine RBC (Auto) Urine Microscopic WBC Ur Squamous Epith Cells Urine HCG, Qual Urine Opiates Screen Negative Urine Methadone Screen Negative Ur Barbiturates Screen Negative Ur Phencyclidine Scrn Negative Ur Amphetamines Screen Negative U Benzodiazepines Scrn Negative U Oth Cocaine Metabols Negative U Cannabinoids Screen Negative 01/01/17 01/01/17 01/01/17 19:38 20:44 21:35 WBC RBC Hgb Hct MCV MCH MCHC RDW Plt Count MPV Neut % (Auto) Lymph % (Auto) [place] % (Auto) Eos % (Auto) Baso % (Auto) Neut # Lymph # [place] # Eos # Baso # PT INR APTT pCO2 pO2 53 HCO3 ABG pH ABG Total CO2 ABG O2 Saturation ABG O2 Content ABG Base Excess ABG Hemoglobin ABG Carboxyhemoglobin POC ABG HHb (Measured) ABG Methemoglobin ABG O2 Capacity Gideon Test VBG pH 7.19 L* VBG pCO2 45 VBG HCO3 16.0 VBG Total CO2 18.6 L VBG O2 Sat (Calc) 89.0 H VBG Base Excess -10.8 L VBG Potassium 3.5 L A-a O2 Difference Hgb O2 Saturation Sodium 145.0 Chloride 119.0 H Glucose 105 Lactate 3.9 H Vent Mode Mechanical Rate FiO2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
[2017-01-02] MEDS: levoFLOXacin 750 mg in D5W 750 MG/150 ML BAG IVPB SCH (13:10)
[2017-01-02 13:16] LABS: NEUTROPHIL 88 % (42-75); TOTAL CELLS COUNTED 100
--- NOTE | 2017-01-02 17:15 | RAD ---
HISTORY: Respiratory failure COMPARISON: Chest x-ray performed 01/01/17 TECHNIQUE: Chest, one view. FINDINGS: Endotracheal tube tip resides at the chelly and should be withdrawn approximately 3 cm. Nasogastric tube extends expected location of the stomach. LUNGS: Patchy bilateral lower lobe consolidations/edema. Please note that chest x-ray has limited sensitivity for the detection of pulmonary masses. PLEURA: No significant pleural effusion identified. No definite pneumothorax . CARDIOVASCULAR: The cardiomediastinal silhouette appears within normal limits of size. OSSEOUS STRUCTURES: No acute osseous abnormality identified. VISUALIZED UPPER ABDOMEN: Unremarkable. OTHER FINDINGS: None. IMPRESSION: Endotracheal tube tip resides at the chelly and should be withdrawn approximately 3 cm. Nasogastric tube extends expected location of the stomach. Patchy bilateral lower lobe consolidations/edema. Findings discussed with Dr. Quarles on 01/02/17 at 5:12 p.m.
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
[2017-01-02] MEDS ORDERED: Potassium Chl 20 mEq in NS 1,000 ML IV SCH (23:30)
[2017-01-02] MEDS ORDERED: Chlorhexidine Gluconate 1 APPL/PKT TP ONE (23:44)
[2017-01-03] MEDS: Piperacillin/Tazobact 3.375 GM in Sodium Chloride 0.9% 100 ML IVPB SCH ×2 (04:00→10:12)
[2017-01-03 06:03] LABS: ALB/GLOB RATIO 1.1 (1.0-2.1); ALKALINE PHOSPHATASE 58 U/L (38-126); ALT/SGPT 55 U/L (9-52); AST/SGOT 76 U/L (14-36); BLOOD UREA NITROGEN 7 mg/dl (7-17); CALCIUM 8.1 mg/dL (8.4-10.2); CARBON DIOXIDE 15 mmol/L (22-30); CHLORIDE 113 mmol/L (98-107); GFR AFRICAN-AMERICAN > 60; GLUCOSE,RANDOM 56 mg/dL (65-105); SODIUM 137 mmol/l (132-148); TOTAL PROTEIN 5.7 G/DL (6.3-8.2)
[2017-01-03 06:08] LABS: POTASSIUM 4.6 MMOL/L (3.6-5.0)
[2017-01-03 06:20] LABS: BASO % 0.3 % (0.0-2.0); EOS % 0.1 % (0.0-4.0); HEMATOCRIT 31.7 % (34.0-47.0); LYMPH # 0.8 K/uL (1.0-4.3); LYMPH % 5.5 % (20.0-40.0); MEAN CORPUSCULAR HEMOGLOBIN 28.8 pg (27.0-31.0); MEAN CORPUSCULAR HGB CONC 33.1 g/dL (33.0-37.0); MEAN PLATELET VOLUME 9.1 fl (7.2-11.7); MONO # 0.7 K/uL (0.0-0.8); MONO % 5.1 % (0.0-10.0); NEUT # 12.9 K/uL (1.8-7.0); NRBC % 0.1 % (0.0-0.0); RED CELL DISTRIBUTION WIDTH 13.8 % (11.5-14.5); WHITE BLOOD COUNT 14.5 K/uL (4.8-10.8)
[2017-01-03] MEDS ORDERED: Dextrose 50% SYRINGE Inj (50 ml) IVP ONE (06:29)
[2017-01-03] MEDS ORDERED: Propofol 10 mg/ml 1,000 MG/100 ML VIAL IV SCH (06:30)
[2017-01-03] MEDS: Albuterol 0.083% Inhal Sol (2.5 mg/3 mL) UD INH SCH ×4 (08:07→19:16)
[2017-01-03] MEDS: levoFLOXacin 750 mg in D5W 750 MG/150 ML BAG IVPB SCH (08:28)
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
[2017-01-03] MEDS ORDERED: Lactated Ringer's 1,000 ML IV SCH (11:00)
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
[2017-01-03] MEDS: Dextrose 5%/Lactated Ringer's 1,000 ML IV SCH (16:29)
[2017-01-03] MEDS: Piperacillin/Tazobact 4.5 GM in Sodium Chloride 0.9% 100 ML IVPB SCH ×2 (16:32→22:06)
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
[2017-01-04] MEDS: Dextrose 5%/Lactated Ringer's 1,000 ML IV SCH (02:25)
[2017-01-04] MEDS: Piperacillin/Tazobact 4.5 GM in Sodium Chloride 0.9% 100 ML IVPB SCH ×2 (03:55→11:00)
[2017-01-04 05:31] LABS: HEMATOCRIT 27.7 % (34.0-47.0); MEAN CORPUSCULAR HEMOGLOBIN 28.9 pg (27.0-31.0); MEAN CORPUSCULAR HGB CONC 34.1 g/dL (33.0-37.0); RED CELL DISTRIBUTION WIDTH 13.3 % (11.5-14.5); WHITE BLOOD COUNT 10.7 K/uL (4.8-10.8)
[2017-01-04 05:49] LABS: BLOOD UREA NITROGEN 6 mg/dl (7-17); CALCIUM 8.1 mg/dL (8.4-10.2); CARBON DIOXIDE 19 mmol/L (22-30); CHLORIDE 116 mmol/L (98-107); GFR AFRICAN-AMERICAN > 60; GLUCOSE,RANDOM 106 mg/dL (65-105); POTASSIUM 3.1 MMOL/L (3.6-5.0); SODIUM 141 mmol/l (132-148)
[2017-01-04] MEDS: Albuterol 0.083% Inhal Sol (2.5 mg/3 mL) UD INH SCH ×4 (07:47→19:45)
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
[2017-01-04] MEDS ORDERED: Potassium Chloride 20 mEq/15 ml LIQ UD PO ONE (08:40)
[2017-01-04] MEDS: levoFLOXacin 750 mg in D5W 750 MG/150 ML BAG IVPB SCH (08:53)
[2017-01-04 10:36] LABS: BLOOD UREA NITROGEN 5 mg/dl (7-17); CALCIUM 8.2 mg/dL (8.4-10.2); CARBON DIOXIDE 21 mmol/L (22-30); CHLORIDE 113 mmol/L (98-107); GFR AFRICAN-AMERICAN > 60; GLUCOSE,RANDOM 123 mg/dL (65-105); POTASSIUM 3.5 MMOL/L (3.6-5.0); SODIUM 141 mmol/l (132-148)
[2017-01-04 10:51] LABS: MAGNESIUM 1.8 MG/DL (1.6-2.3)
[2017-01-04 10:53] LABS: PHOSPHOROUS 0.9 mg/dl (2.5-4.5)
[2017-01-04] MEDS ORDERED: Potassium Phosphate 30 MMOLE in Dextrose 5% In Water 250 ML IV ONE (11:18)
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
--- NOTE | 2017-01-04 14:31 | RAD ---
PROCEDURE: CHEST RADIOGRAPH, 1 VIEW portable study 13:50. HISTORY: pneumonia COMPARISON: January 03, 2017. Portable chest. 01/01/2017 CT thorax FINDINGS: LUNGS: Progressive consolidative changes bilaterally right greater than left PLEURA: Increasing pleural effusions CARDIOVASCULAR: No radiographic findings to suggest acute or significant cardiovascular disease. OSSEOUS STRUCTURES: No significant abnormalities. VISUALIZED UPPER ABDOMEN: Normal. OTHER FINDINGS: Removal of support apparatus since the prior study: Endotracheal tube and nasogastric tube. IMPRESSION: Worsening infiltrates, increasing bilateral pleural effusions.
[2017-01-04] MEDS: guaiFENesin-DM 600-30 mg ER Tab PO PRN (15:30)
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
[2017-01-04] MEDS: Meropenem 1 GM in Sodium Chloride 0.9% 100 ML IVPB SCH (18:35)
[2017-01-04] MEDS: Acetylcysteine 20% Inhal Soln (4ml) INH SCH (19:45)
[2017-01-05] MEDS: Meropenem 1 GM in Sodium Chloride 0.9% 100 ML IVPB SCH ×3 (00:29→16:14)
[2017-01-05] MEDS: guaiFENesin-DM 600-30 mg ER Tab PO PRN (03:46)
[2017-01-05 05:24] LABS: MEAN CELL VOLUME 85.4 fl (81.0-99.0); MEAN CORPUSCULAR HEMOGLOBIN 28.5 pg (27.0-31.0); MEAN CORPUSCULAR HGB CONC 33.3 g/dL (33.0-37.0); RED CELL DISTRIBUTION WIDTH 13.7 % (11.5-14.5); WHITE BLOOD COUNT 6.7 K/uL (4.8-10.8)
[2017-01-05 05:25] LABS: CALCIUM 8.1 mg/dL (8.4-10.2); CARBON DIOXIDE 22 mmol/L (22-30); CHLORIDE 113 mmol/L (98-107); GFR AFRICAN-AMERICAN > 60; GLUCOSE,RANDOM 94 mg/dL (65-105); MAGNESIUM 1.6 MG/DL (1.6-2.3); PHOSPHOROUS 2.7 mg/dl (2.5-4.5); POTASSIUM 3.7 MMOL/L (3.6-5.0); SODIUM 140 mmol/l (132-148)
[2017-01-05 06:18] LABS: BLOOD UREA NITROGEN < 2 mg/dl (7-17)
[2017-01-05] MEDS: Albuterol 0.083% Inhal Sol (2.5 mg/3 mL) UD INH SCH ×4 (07:53→19:26)
[2017-01-05] MEDS: Acetylcysteine 20% Inhal Soln (4ml) INH SCH ×2 (07:53→19:25)
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
[2017-01-05] MEDS: guaiFENesin-Codeine 100-10mg/5ml Syrup (5 ml) UD PO PRN ×2 (09:17→21:43)
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
--- NOTE | 2017-01-05 11:54 | CT ---
PROCEDURE: CT Chest without contrast with high-resolution chest imaging HISTORY: Bilateral infiltrates COMPARISON: 01/01/2017 TECHNIQUE: Contiguous axial images were obtained through the chest without intravenous contrast enhancement. Sagittal and coronal reconstructions were performed. Radiation dose (DLP): 211.06 mGy-cm. This CT exam was performed using one or more of the following dose reduction techniques: Automated exposure control, adjustment of the mA and/or kV according to patient size, and/or use of iterative reconstruction technique. FINDINGS: The examination is limited due to respiratory motion artifact. LUNGS: There is diminished consolidation in both lower lobes. There is small bilateral pleural effusion, right greater than left. There is minimal compressive atelectasis in left lower lobe. There is more extensive lower lobe atelectasis on the right side. There are patchy alveolar opacities in the left lower lobe more extensive than on prior examination. The patchy opacities are seen also in the lingular segment of the left upper lobe. These are more extensive than previously. There is chavo alveolar infiltrate in the anterior right upper lobe and in the right middle lobe. Evaluation of pulmonary interstitium with high-resolution chest imaging is limited due to respiratory motion artifact. There is no gross evidence of interstitial disease. MEDIASTINUM: Unremarkable thoracic aorta. No aneurysm. Normal sized heart. Main pulmonary artery unremarkable. No vascular congestion. No lymphadenopathy. PLEURA: Small bilateral pleural effusion, right greater than left. BONES: No fracture. No destructive lesion. UPPER ABDOMEN: Again, evaluation is limited due to respiratory motion artifact. The pancreas appear slightly enlarged compared to prior contrast enhanced CT of 01/01/2017. Please correlate clinically and with laboratory evaluation for possible pancreatitis. No peripancreatic fluid is appreciated. There is pericholecystic fluid appreciated. The gallbladder is only partially included in this examination. This is a nonspecific finding. Visualized liver and spleen are grossly normal. OTHER FINDINGS: None. IMPRESSION: Diminished consolidation in the lower lobes. New small bilateral pleural effusion with lower lobe atelectasis right greater than left. New alveolar infiltrates in the right upper lobe, right middle lobe, left lower lobe and lingula. No evidence of chavo interstitial infiltrate. Apparent enlargement of the pancreas compared to the prior CT examination concerning for acute pancreatitis. Please correlate with clinical and laboratory evaluation. Pericholecystic fluid. Nonspecific finding. Again, please correlate clinically.
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
--- NOTE | 2017-01-05 18:43 | CARD ---
APPROVED REPORT EXAM: Two-dimensional and M-mode echocardiogram with Doppler and color Doppler. Other Information Quality : GoodRhythm : NSR INDICATION LV Function:SystolicDiastolic S/P Cardiac Arrest 2D DIMENSIONS IVSd0.68 (0.7-1.1cm)LVDd4.15 (3.9-5.9cm) LVOT Diameter1.71 (1.8-2.4cm)PWd0.64 (0.7-1.1cm) IVSs1.04 (0.8-1.2cm)LVDs2.60 (2.5-4.0cm) FS (%) 37.4 %PWs0.98 (0.8-1.2cm) M-Mode DIMENSIONS Left Atrium (MM)2.55 (2.5-4.0cm)IVSd0.91 (0.7-1.1cm) Aortic Root2.73 (2.2-3.7cm)LVDd4.49 (4.0-5.6cm) Aortic Cusp Exc.1.64 (1.5-2.0cm)PWd0.77 (0.7-1.1cm) IVSs1.21 cmFS (%) 36 % LVDs2.89 (2.0-3.8cm)PWs1.27 cm Mitral Valve E/A ratio0.0 TDI E/Lateral E'0.0E/Medial E'0.0 Pulmonary Valve PV Peak Ptnokenb98.2cm/s Tricuspid Valve TR Peak [id number] [id number] Peak Gr.41mmHg [id number] LEFT VENTRICLE The left ventricle is normal size. There is normal left ventricular wall thickness. The left ventricular function is normal. The left ventricular ejection fraction is - 65-70%. There is normal LV segmental wall motion. The left ventricular diastolic function is normal. No left ventricle thrombus noted on this study. There is no ventricular septal defect visualized. There is no left ventricular aneurysm. There is no mass noted in the left ventricle. RIGHT VENTRICLE The right ventricle is normal size. There is normal right ventricular wall thickness. The right ventricular systolic function is normal. ATRIA The left atrium size is normal. The right atrium size is normal. The interatrial septum is intact with no evidence for an atrial septal defect. AORTIC VALVE The aortic valve is normal in structure and function. No aortic regurgitation is present. There is no aortic valvular stenosis. MITRAL VALVE The mitral valve is normal in structure and function. There is no evidence of mitral valve prolapse. There is no mitral valve stenosis. There is no mitral valve regurgitation noted. TRICUSPID VALVE The tricuspid valve is normal in structure and function. There is moderate tricuspid regurgitation. Right ventricular systolic pressure is estimated at 49 mmHg. There is no tricuspid valve prolapse or vegetation. There is no tricuspid valve stenosis. PULMONIC VALVE The pulmonary valve is normal in structure and function. There is trivial pulmonic valvular regurgitation. GREAT VESSELS The aortic root is normal in size. The IVC is normal in size and collapses >50% with inspiration. PERICARDIAL EFFUSION The pericardium appears normal. There is no pleural effusion. <Conclusion> The left ventricle is normal in size and wall thickness. The left ventricular function is normal. The left ventricular ejection fraction is - 65-70%. The left atrium, right ventricle and right atrium are normal in size. The mitral, aortic and tricuspid valves are normal. There is moderate tricuspid regurgitation.
[2017-01-05] MEDS: Benzocaine/Menthol (Cepacol) Lozenge PO PRN (21:35)
[2017-01-06] MEDS: Meropenem 1 GM in Sodium Chloride 0.9% 100 ML IVPB SCH ×3 (00:12→16:35)
[2017-01-06] MEDS: Acetylcysteine 20% Inhal Soln (4ml) INH SCH ×2 (07:09→19:12)
[2017-01-06] MEDS: Albuterol 0.083% Inhal Sol (2.5 mg/3 mL) UD INH SCH ×4 (07:09→19:12)
[2017-01-06 07:48] LABS: HEMATOCRIT 27.8 % (34.0-47.0); MEAN CELL VOLUME 84.3 fl (81.0-99.0); MEAN CORPUSCULAR HEMOGLOBIN 29.3 pg (27.0-31.0); MEAN CORPUSCULAR HGB CONC 34.7 g/dL (33.0-37.0); RED CELL DISTRIBUTION WIDTH 13.3 % (11.5-14.5); WHITE BLOOD COUNT 6.2 K/uL (4.8-10.8)
[2017-01-06 08:03] LABS: BLOOD UREA NITROGEN 3 mg/dl (7-17); CALCIUM 8.5 mg/dL (8.4-10.2); CARBON DIOXIDE 25 mmol/L (22-30); CHLORIDE 110 mmol/L (98-107); GFR AFRICAN-AMERICAN > 60; GLUCOSE,RANDOM 85 mg/dL (65-105); SODIUM 140 mmol/l (132-148)
[2017-01-06] MEDS: Pantoprazole 40 mg EC Tab PO SCH (09:23)
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
[2017-01-06] MEDS: guaiFENesin-Codeine 100-10mg/5ml Syrup (5 ml) UD PO PRN ×2 (11:36→19:53)
[2017-01-06] MEDS: Benzocaine/Menthol (Cepacol) Lozenge PO PRN ×2 (16:36→19:54)
[2017-01-07] MEDS: Meropenem 1 GM in Sodium Chloride 0.9% 100 ML IVPB SCH ×3 (00:05→17:08)
[2017-01-07] MEDS: guaiFENesin-Codeine 100-10mg/5ml Syrup (5 ml) UD PO PRN ×2 (06:21→21:14)
[2017-01-07] MEDS: Benzocaine/Menthol (Cepacol) Lozenge PO PRN ×3 (06:22→21:15)
[2017-01-07] MEDS: Acetylcysteine 20% Inhal Soln (4ml) INH SCH ×2 (07:31→20:17)
[2017-01-07] MEDS: Albuterol 0.083% Inhal Sol (2.5 mg/3 mL) UD INH SCH ×4 (07:31→20:18)
[2017-01-07] MEDS: guaiFENesin-DM 600-30 mg ER Tab PO PRN (08:59)
[2017-01-07] MEDS: Pantoprazole 40 mg EC Tab PO SCH (08:59)
[2017-01-07] MEDS ORDERED: Sodium Chloride 3% for Inhalation 4 ML VIAL.NEB IH PRN (10:12)
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
[2017-01-08] MEDS: Meropenem 1 GM in Sodium Chloride 0.9% 100 ML IVPB SCH ×3 (00:59→17:06)
[2017-01-08 06:11] LABS: BASO % 0.4 % (0.0-2.0); EOS # 0.5 K/uL (0.0-0.7); EOS % 4.6 % (0.0-4.0); HEMATOCRIT 30.3 % (34.0-47.0); LYMPH # 1.7 K/uL (1.0-4.3); LYMPH % 16.6 % (20.0-40.0); MEAN CELL VOLUME 85.2 fl (81.0-99.0); MEAN CORPUSCULAR HEMOGLOBIN 28.1 pg (27.0-31.0); MEAN PLATELET VOLUME 7.6 fl (7.2-11.7); MONO # 0.9 K/uL (0.0-0.8); MONO % 8.3 % (0.0-10.0); NEUT # 7.3 K/uL (1.8-7.0); NEUT % 70.1 % (50.0-75.0); RED CELL DISTRIBUTION WIDTH 13.2 % (11.5-14.5); WHITE BLOOD COUNT 10.4 K/uL (4.8-10.8)
[2017-01-08 06:24] LABS: ALB/GLOB RATIO 1.1 (1.0-2.1); ALKALINE PHOSPHATASE 67 U/L (38-126); ALT/SGPT 55 U/L (9-52); AST/SGOT 32 U/L (14-36); BILIRUBIN,TOTAL 0.3 mg/dl (0.2-1.3); BLOOD UREA NITROGEN 3 mg/dl (7-17); CALCIUM 8.5 mg/dL (8.4-10.2); CARBON DIOXIDE 26 mmol/L (22-30); CHLORIDE 108 mmol/L (98-107); GFR AFRICAN-AMERICAN > 60; GLUCOSE,RANDOM 86 mg/dL (65-105); LIPASE 617 U/L (23-300); POTASSIUM 3.9 MMOL/L (3.6-5.0); SODIUM 139 mmol/l (132-148); TOTAL PROTEIN 5.9 G/DL (6.3-8.2)
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
[2017-01-08] MEDS: Albuterol 0.083% Inhal Sol (2.5 mg/3 mL) UD INH SCH ×5 (08:00→19:02)
[2017-01-08] MEDS: Acetylcysteine 20% Inhal Soln (4ml) INH SCH ×3 (08:00→19:02)
[2017-01-08] MEDS: Pantoprazole 40 mg EC Tab PO SCH (09:41)
[2017-01-08] MEDS: Benzocaine/Menthol (Cepacol) Lozenge PO PRN (09:48)
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
[2017-01-09] MEDS: Meropenem 1 GM in Sodium Chloride 0.9% 100 ML IVPB SCH ×2 (00:16→10:35)
[2017-01-09 06:27] LABS: HEMATOCRIT 31.5 % (34.0-47.0); MEAN CORPUSCULAR HEMOGLOBIN 28.5 pg (27.0-31.0); MEAN CORPUSCULAR HGB CONC 33.6 g/dL (33.0-37.0); RED CELL DISTRIBUTION WIDTH 13.9 % (11.5-14.5); WHITE BLOOD COUNT 7.4 K/uL (4.8-10.8)
[2017-01-09 06:34] LABS: BLOOD UREA NITROGEN 5 mg/dl (7-17); CARBON DIOXIDE 24 mmol/L (22-30); CHLORIDE 107 mmol/L (98-107); CHOLESTEROL 166 mg/dL (0-199); GFR AFRICAN-AMERICAN > 60; GLUCOSE,RANDOM 87 mg/dL (65-105); POTASSIUM 4.1 MMOL/L (3.6-5.0); SODIUM 139 mmol/l (132-148)
[2017-01-09] MEDS: Acetylcysteine 20% Inhal Soln (4ml) INH SCH (07:24)
[2017-01-09] MEDS: Albuterol 0.083% Inhal Sol (2.5 mg/3 mL) UD INH SCH ×3 (07:24→15:52)
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
[2017-01-09] MEDS: Pantoprazole 40 mg EC Tab PO SCH (10:37)
[2017-01-09 15:41] VITALS: BP 100/66; PULSE 79; RESP 20; TEMP 97.5; O2SAT 100
== END 2017-01-09 16:57 | DRG 208 ==
LOC: H.ER 16:32 → EDBD 17:25 → H.ERHOLD 17:25 → H.ICU/CCU 19:55 → H.TEL 01-05 16:09
PROVIDERS: ADMIT Hospitalist; ATTEND Hospitalist
PROC: 5A1945Z Respiratory Ventilation, 24-96 Consecutive Hours (ICD-10-PCS; principal; 2017-01-01)
PROC: 0BH17EZ Insertion of Endotracheal Airway into Trachea, Via Natural or Artificial Opening (ICD-10-PCS; 2017-01-01)
PROC: 3E0234Z Introduction of Serum, Toxoid and Vaccine into Muscle, Percutaneous Approach (ICD-10-PCS; 2017-01-04)
DX: J69.0 Pneumonitis due to inhalation of food and vomit (principal); J96.01 Acute respiratory failure with hypoxia; I46.8 Cardiac arrest due to other underlying condition; A41.9 Sepsis, unspecified organism; E87.4 Mixed disorder of acid-base balance; G93.1 Anoxic brain damage, not elsewhere classified; F32.2 Major depressive disorder, single episode, severe without psychotic features; J98.11 Atelectasis; R45.851 Suicidal ideations; D64.9 Anemia, unspecified; X71.3XXA Intentional self-harm by drowning and submersion in natural water, initial encounter; Y92.828 Other wilderness area as the place of occurrence of the external cause; Z23 Encounter for immunization; E16.2 Hypoglycemia, unspecified; T68.XXXA Hypothermia, initial encounter; K86.89 Other specified diseases of pancreas; R07.9 Chest pain, unspecified; E83.39 Other disorders of phosphorus metabolism; X71 Intentional self-harm by drowning and submersion; Z90.49 Acquired absence of other specified parts of digestive tract; Z91.5 Personal history of self-harm

== ENCOUNTER 2017-01-09 10:37 | Inpatient (IN) | payer OTHER ==
[2017-01-09 17:08] VITALS: BMI 18.3
[2017-01-09] MEDS ORDERED: DiphenhydrAMINE 50 mg/ml Inj IM PRN (18:22)
[2017-01-09] MEDS ORDERED: Alum-Mag Hydrox-Simethicone Susp (30 mL) PO PRN ×2 (18:30→18:31)
[2017-01-09] MEDS ORDERED: Bismuth Subsalicylate 262 mg/15 ml Sus (240 ml) PO PRN (18:30)
[2017-01-09] MEDS ORDERED: Magnesium Hydroxide Susp 30 ml UD PO PRN (18:32)
[2017-01-09] MEDS ORDERED: guaiFENesin-Codeine 100-10mg/5ml Syrup (5 ml) UD PO PRN (21:13)
[2017-01-09] MEDS ORDERED: Benzocaine/Menthol (Cepacol) Lozenge PO PRN (21:13)
[2017-01-09] MEDS ORDERED: guaiFENesin-DM 600-30 mg ER Tab PO PRN (21:13)
[2017-01-10] MEDS ORDERED: Patient's Own Med (Meropenem Iv 1 Gm In Ns [Merrem Iv 1 Gm Premix] 1 GM) IVPB SCH (01:00)
[2017-01-10] MEDS: Meropenem 1 GM in Sodium Chloride 0.9% 100 ML IVPB SCH ×3 (02:17→16:16)
[2017-01-10 07:55] LABS: HEMOGLOBIN 11.2 g/dL (12.0-16.0); MEAN CELL VOLUME 85.3 fl (81.0-99.0); MEAN CORPUSCULAR HEMOGLOBIN 28.4 pg (27.0-31.0); MEAN CORPUSCULAR HGB CONC 33.3 g/dL (33.0-37.0); RBC 3.96 Mil/uL (3.80-5.20); RED CELL DISTRIBUTION WIDTH 13.5 % (11.5-14.5); WHITE BLOOD COUNT 7.9 K/uL (4.8-10.8)
[2017-01-10 08:21] LABS: IRON 34 ug/dL (37-170)
[2017-01-10 08:36] LABS: % IRON SATURATION 10 % (20-55); TOTAL IRON BINDING CAPACITY 344 ug/dL (250-450)
[2017-01-10 08:48] LABS: HDL CHOLESTEROL 30 MG/DL (30-70)
[2017-01-10] MEDS: Pantoprazole 40 mg EC Tab PO SCH (08:51)
[2017-01-10 08:58] LABS: LDL CHOLESTEROL 130 mg/dL (0-129)
[2017-01-10] MEDS ORDERED: Patient's Own Med (Vancomycin 1 Gm [Vancomycin 1gm In Normal Saline Addvantage] 1 GM) IVPB SCH (09:00)
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
[2017-01-10] MEDS: Albuterol 0.083% Inhal Sol (2.5 mg/3 mL) UD INH SCH ×4 (09:27→19:16)
[2017-01-10] MEDS: Acetylcysteine 20% Inhal Soln (4ml) INH SCH ×2 (09:27→19:16)
[2017-01-10 12:42] LABS: FOLATE 14.8 ng/mL
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
[2017-01-11] MEDS: Meropenem 1 GM in Sodium Chloride 0.9% 100 ML IVPB SCH ×3 (00:22→17:10)
[2017-01-11] MEDS: Pantoprazole 40 mg EC Tab PO SCH (08:50)
[2017-01-11] MEDS: Acetylcysteine 20% Inhal Soln (4ml) INH SCH (09:13)
[2017-01-11] MEDS: Albuterol 0.083% Inhal Sol (2.5 mg/3 mL) UD INH SCH ×4 (09:14→22:21)
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
[2017-01-11] MEDS ORDERED: Albuterol 0.083% Inhal Sol (2.5 mg/3 mL) UD INH PRN (22:42)
[2017-01-11] MEDS: Amoxicillin-Clav 875-125 mg Tab PO SCH (23:23)
[2017-01-12] MEDS: Meropenem 1 GM in Sodium Chloride 0.9% 100 ML IVPB SCH (01:00)
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
[2017-01-12] MEDS: Pantoprazole 40 mg EC Tab PO SCH (08:47)
[2017-01-12] MEDS: Amoxicillin-Clav 875-125 mg Tab PO SCH ×2 (08:48→21:36)
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
--- NOTE | 2017-01-12 13:34 | RAD ---
HISTORY: Follow-up PNA COMPARISON: 01/04/2017 TECHNIQUE: Chest PA and lateral FINDINGS: LUNGS: Resolution of previously identified pulmonary infiltrates. PLEURA: No significant pleural effusion identified. No pneumothorax apparent. CARDIOVASCULAR: Normal. OSSEOUS STRUCTURES: No significant abnormalities. VISUALIZED UPPER ABDOMEN: Normal. OTHER FINDINGS: None. IMPRESSION: No active disease.
[2017-01-13 06:05] VITALS: BP 101/62; PULSE 67; RESP 18; TEMP 97.2
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
[2017-01-13] MEDS: Amoxicillin-Clav 875-125 mg Tab PO SCH (08:51)
[2017-01-13] MEDS: Pantoprazole 40 mg EC Tab PO SCH (08:52)
== END 2017-01-13 10:25 | disposition home or self-care (01) | DRG 885 ==
LOC: H.STEP 17:55
PROVIDERS: ADMIT Psychiatry & Neurology Psychiatry; ATTEND Psychiatry & Neurology Psychiatry
PROC: GZ51ZZZ Individual Psychotherapy, Behavioral (ICD-10-PCS; principal; 2017-01-09)
PROC: 3E0F7GC Introduction of Other Therapeutic Substance into Respiratory Tract, Via Natural or Artificial Opening (ICD-10-PCS; 2017-01-10)
DX: F32.2 Major depressive disorder, single episode, severe without psychotic features (principal); J69.0 Pneumonitis due to inhalation of food and vomit; E87.2 Acidosis; R45.851 Suicidal ideations; X71 Intentional self-harm by drowning and submersion; Z90.49 Acquired absence of other specified parts of digestive tract; Z91.5 Personal history of self-harm